=== PATIENT | female | born 1985 | race Caucasian/White ===

== ENCOUNTER 2023-09-20 20:25 | Emergency (ER) | payer SELFPAY ==
[~2023-09-20] VITALS: Ht 162.6 cm; Wt 82.0 kg
[2023-09-20 20:43] VITALS: TEMP 98; O2SAT 99
[2023-09-20] MEDS ORDERED: IBUPROFEN 400MG TABLET PO NR (23:00)
[2023-09-20] MEDS ORDERED: IBUPROFEN 800MG TABLET PO ONE (23:00)
[2023-09-20 23:45] VITALS: BP 136/64; PULSE 96; RESP 18
[2023-09-21] MEDS ORDERED: ACET-2708 MT (00:18)
== END 2023-09-21 00:55 | disposition home or self-care (01) ==
LOC: ER 20:25
DX: R07.89 Other chest pain (principal); M54.50 Low back pain, unspecified; V49.49XA Driver injured in collision with other motor vehicles in traffic accident, initial encounter; Y93.89 Activity, other specified; Y92.89 Other specified places as the place of occurrence of the external cause; Y99.8 Other external cause status; E11.9 Type 2 diabetes mellitus without complications
CPT/HCPCS: 71045; 72100; 93005; 99284